=== PATIENT | female | born 1970 | race American Indian/Alaskan Native ===

== ENCOUNTER 2017-04-21 08:40 | Outpatient (CLI) | payer MEDICAID ==
--- NOTE | 2017-04-21 11:42 | XRay Report ---
BILATERAL KNEES, 3 VIEWS History: Bilateral knee pain. Findings: There is normal bone mineralization. No fracture or bone lesion. Moderate to severe osteoarthritic changes are identified in the medial compartment and patellofemoral space of the right knee. Mild osteoarthritic changes in the lateral compartment. Mild osteoarthritic changes are identified in the medial compartment and patellofemoral space of the left knee. The lateral compartment of the left knee is within normal limits. No soft tissue abnormality appreciated. Impression: Osteoarthritis, right greater than left.
== END 2017-04-21 08:41 | disposition home or self-care (01) ==
LOC: XRAY 08:40
PROVIDERS: ATTEND Internal Medicine
DX: M17.0 Bilateral primary osteoarthritis of knee (principal)

== ENCOUNTER 2017-06-02 10:09 | Outpatient (CLI) | payer MEDICAID ==
--- NOTE | 2017-06-02 12:44 | Mammography Report ---
BILATERAL MAMMOGRAM with CAD: HISTORY: Cancer screening. Comparison study is dated May 07, 2015. FINDINGS: There are scattered fibroglandular densities (approximately 25%-50% glandular). No mass, distortion, suspicious calcification, or skin change is seen. There is a stable benign left breast nodule, upper outer quadrant. IMPRESSION: Negative mammogram. There is no mammographic evidence of malignancy. RECOMMENDATION: Follow-up per ACS guidelines. BI-RADS CATEGORY: 1 = Negative ACR BI-RADS MAMMOGRAPHIC CODES: 0 = Needs additional imaging evaluation; 1 = Negative; 2 = Benign; 3 = Probably benign; 4 = Suspicious; 5 = Malignant; 6 = Known biopsy-proven malignancy COMMENT: 1. Dense breast tissue, i.e., adenosis, fibrocystic changes, etc., may obscure an underlying neoplasm. 2. Approximately 10% of cancers are not detected with mammography. 3. A negative mammography report should not delay biopsy if a clinically suspicious mass is present. COMMENT: Patient follow-up letters are generated in [employer].
== END 2017-06-02 10:10 | disposition home or self-care (01) ==
LOC: MAMMO 10:09
PROVIDERS: ATTEND Internal Medicine
DX: Z12.31 Encounter for screening mammogram for malignant neoplasm of breast (principal)
CPT/HCPCS: 77067; G0202

== ENCOUNTER 2019-10-19 13:31 | Emergency (ER) | payer MEDICAID ==
[2019-10-19 16:19] LABS: Basophils # (Auto) 0.1 K/mm3 (0.0-0.1); Basophils % (Auto) 0.9 % (0.0-1.8); Eosinophils # (Auto) 0.1 K/mm3 (0.0-0.4); Eosinophils % (Auto) 1.2 % (0.0-4.3); Hematocrit 39.4 % (30.3-42.9); Hemoglobin 12.8 gm/dl (10.1-14.3); Lymphocytes # (Auto) 2.6 K/mm3 (1.2-5.4); Lymphocytes % (Auto) 37.7 % (13.4-35.0); Mean Corpuscular HGB Conc 32 % (30-34); Mean Corpuscular Volume 75 fl (79-97); Monocytes # (Auto) 0.6 K/mm3 (0.0-0.8); Monocytes % (Auto) 9.4 % (0.0-7.3); Platelet Count 253 K/mm3 (140-440); Red Blood Count 5.23 M/mm3 (3.65-5.03); Red Cell Distribution Width 16.5 % (13.2-15.2)
[2019-10-19] MEDS ORDERED: SODIUM CHLORIDE 0.9% 1000 ML 1,000 ML IV ONE (16:35)
[2019-10-19 16:46] LABS: Alanine Aminotransferase 5 units/L (7-56); Albumin 4.1 g/dL (3.9-5); BUN/Creatinine Ratio 13; Blood Urea Nitrogen 9 mg/dL (7-17); Calcium 9.1 mg/dL (8.4-10.2); Hemolysis Index 2
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
--- NOTE | 2019-10-19 17:19 | XRay Report ---
CHEST 2 VIEWS INDICATION: elev bp. COMPARISON: 10/23/2008 FINDINGS: Support devices: None. Heart: Within normal limits. Lungs/pleura: No acute air space or interstitial disease. No pneumothorax. Additional findings: None. IMPRESSION: 1. No acute findings. Signer Name: Craig Garcia MD Signed: 10/19/2019 5:14 PM Workstation Name: [id number]
[2019-10-19] MEDS ORDERED: KETOROLAC 30 MG/1 ML INJ IV ONE (18:12)
[2019-10-19 19:52] VITALS: BP 165/85
== END 2019-10-19 19:51 | disposition home or self-care (01) ==
LOC: ED 13:31
DX: R53.83 Other fatigue (principal); M79.18 Myalgia, other site; I10 Essential (primary) hypertension; Z98.890 Other specified postprocedural states
CPT/HCPCS: 36415; 71046; 80053; 82550; 83880; 84484; 85025; 96374; 99284; J1885; J7030

== ENCOUNTER 2021-06-20 10:17 | Emergency (ER) | payer MEDICAID ==
[2021-06-20 10:22] VITALS: BP 123/69
--- NOTE | 2021-06-20 10:39 | Event Note ---
ED Screening Note ED Screening Note: CO FATIGUE, SEVERAL SYNCOPE SPELLS OVER THE LAST WEEK- LAST ONE LAST NIGHT ALSO CO COUGH AND SOB; WELL CP NO FEVER OR CHILLS FIRST MEDICAL CONTACT TODAY HX BIPOLAR AND HTN CAN NOT TELL ME HOME MEDS HER PCP WONT SEE HER ANY MORE PSH ANKLE NO HI NO SI DAUGHTER ALSO ILL NO COVID OR FLU IMMUNIZATION NO HX COVID LAST NIGHT WHEN SHE PASSED OUT SHE WAS INCONTIN. OF URINE Vital Signs 06/20/21 10:21 Temperature 97.5 F L Pulse Rate 93 H Respiratory 18 Rate Blood Pressure 123/69 [Right] O2 Sat by Pulse 97 Oximetry This initial assessment/diagnostic orders/clinical plan/treatment(s) is/are subject to change based on patients health status, clinical progression and re- assessment by fellow clinical providers in the ED. Further treatment and workup at subsequent clinical providers discretion. Patient/guardian urged not to elope from the ED as their condition may be serious if not clinically assessed and managed. Initial orders include: LABS UA CHEST XRAY EKG
[2021-06-20] MEDS ORDERED: SODIUM CHLORIDE 0.9% 1000 ML 1,000 ML IV ONE (11:39)
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
[2021-06-20 11:54] LABS: Alanine Aminotransferase 8 units/L (7-56); Albumin 3.9 g/dL (3.9-5); BUN/Creatinine Ratio 13; Blood Urea Nitrogen 10 mg/dL (7-17); Calcium 8.8 mg/dL (8.4-10.2); Hemolysis Index 2
[2021-06-20 11:56] LABS: Hemoglobin 12.7 gm/dl (10.1-14.3); Mean Corpuscular HGB Conc 30 % (30-34); Mean Corpuscular Volume 74 fl (79-97); Platelet Count 154 K/mm3 (140-440); Red Blood Count 5.69 M/mm3 (3.65-5.03); Red Cell Distribution Width 15.3 % (13.2-15.2)
[2021-06-20 11:57] LABS: Hematocrit 42.3 % (30.3-42.9)
--- NOTE | 2021-06-20 12:33 | XRay Report ---
CHEST 2 VIEWS INDICATION: COUGH. COMPARISON: 10/19/2019 FINDINGS: Support devices: None. Heart: Within normal limits. Lungs/Pleura: Mild increased opacity at the mid/lower zones bilaterally. No significant pleural eff usion. IMPRESSION: Bilateral mid/lower zone pneumonia. Signer Name: Juan Sanchez MD Signed: 06/20/2021 12:28 PM Workstation Name: [id number]
[2021-06-20 12:37] LABS: Hypochromasia 1+; RBC Morphology Normal; Total Cells Counted 100
[2021-06-20 12:38] LABS: Large Platelets Few; Platelet Estimate Consistent w Auto
[2021-06-20] MEDS ORDERED: KETOROLAC 30 MG/1 ML INJ IV ONE (12:45)
[2021-06-20] MEDS ORDERED: AZITHROMYCIN 250 MG TAB PO ONE (13:01)
[2021-06-20 14:23] LABS: C-Reactive Protein 2.5 mg/dL (0.00-1.30)
--- NOTE | 2021-06-21 10:53 | Electrocardiograph Report ---
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
== END 2021-06-20 14:51 | disposition home or self-care (01) ==
LOC: ED 10:17
DX: J18.1 Lobar pneumonia, unspecified organism (principal); R55 Syncope and collapse; I10 Essential (primary) hypertension
CPT/HCPCS: 36415; 71046; 80053; 82550; 82728; 83615; 83735; 84145; 84484; 84703; 85007; 85025; 86140; 93005; 96361; 96374; 99284; J1885

== ENCOUNTER 2022-01-09 10:39 | Outpatient (CLI) | payer MEDICAID ==
--- NOTE | 2022-01-10 17:25 | Mammography Report ---
DIGITAL SCREENING MAMMOGRAM WITH CAD, 01/09/2022 CLINICAL INFORMATION / INDICATION: Routine screening mammography. TECHNIQUE: Digital bilateral 2D mammography was obtained in the craniocaudal and mediolateral obliqu e projections. This examination was interpreted with the benefit of Computer-Aided Detection analysis . COMPARISON: 06/02/2017, 05/07/2015 FINDINGS: Breast Density: There are scattered areas of fibroglandular density. No dominant mass, suspicious calcifications, or architectural distortion in either breast. No interval change. IMPRESSION: No mammographic evidence of malignancy. Follow up recommendation: Routine yearly screening mammogram. BI-RADS Category 1: NEGATIVE A "normal" or negative report should not discourage follow up or biopsy of a clinically significant f inding. A written summary of these findings will be mailed to the patient. The patient will be entered into a mammography reporting system which will generate a reminder letter for the patient's next appointmen t at the appropriate interval. The [employer] recommends yearly mammograms starting at age 40 and continuing as l adithya as a woman is in good health. Breast MRI is recommended for women with an approximate 20-25% or greater lifetime risk of breast cancer, including women with a strong family history of breast or ova lina cancer or who have been treated for Hodgkin's disease. Signer Name: Tita Jade MD Signed: 01/10/2022 5:20 PM Workstation Name: [id number]
== END 2022-01-09 10:40 | disposition home or self-care (01) ==
LOC: MAMMO 10:39
PROVIDERS: ATTEND Internal Medicine
DX: Z12.31 Encounter for screening mammogram for malignant neoplasm of breast (principal)
CPT/HCPCS: 77067